=== PATIENT | male | born 1950 ===

== ENCOUNTER → 2024-06-21 12:12 | Outpatient (BNVA) | payer MEDICARE, SELFPAY | PROVIDERS: Visit Provider Physician Assistant | DX: Z76.0 Encounter for issue of repeat prescription (principal); I10 Essential (primary) hypertension | CPT/HCPCS: 99212 ==

== ENCOUNTER 2024-06-21 12:17 | Outpatient (AMB) | payer MEDICARE, SELFPAY ==
--- NOTE | 2024-06-21 12:39 | AM.OFFWIN_ITS ---
Intake Vital Signs 06/21/24 12:45 Height 5 ft 9 in Weight 185 lb BMI 27.3 BP 138/80 Blood Pressure Location Lt brachial Position Sitting Pulse 76 Pulse Source Pulse Oximeter Temp 98.1 F Temp Source Oral Pulse Oximetry (%) 98 Intake Visit Reasons: [employer] BP refill?? was ok'd to come yesterday Patient Tobacco Use Status: Current someday Tobacco user Allergies tetracycline Allergy (Mild, Verified 06/21/24 12:49) Unknown Do you need a note to return to daycare/school/sports/work: No HPI HPI Comments History of Present Illness Details This is a 74-year-old male with a past medical history of hypertension and glaucoma presenting requesting refills of his hypertension medications. Patient states his primary care physician Dr. Shepherd unfortunately closed his practice over 2 years ago and he has been getting his medications through urgent care. Patient is unaware of his last blood work. He does not currently have an appointment for an intake for primary care. Patient's last dose of his medications was yesterday and he has no physical complaints at this time. Patient has been recording his blood pressures and his blood pressure this morning was 142/81 and 136/76. Patient called the clinic yesterday to inquire about refills of his blood pressure medication and this request was approved. [facility] Social History Patient Tobacco Use Status: Current someday Tobacco user Review of Systems Const All systems reviewed & are unremarkable except as noted in HPI and below Eyes Reports no additional complaints ENT Reports no additional complaints Card Reports no additional complaints Resp Reports no additional complaints GI Reports no additional complaints Reports no additional complaints Musc Reports no additional complaints Skin/Breast Reports system reviewed and no additional complaints, except as documented Neuro Reports no additional complaints Psych Reports no additional complaints Endo Reports no additional complaints Mj/Lymph Reports no additional complaints Aller/Immun Reports no additional complaints Physical Exam Vital Signs: Last Vital Signs Temp 98.1 F 06/21/24 12:45 Pulse 76 06/21/24 12:45 BP 138/80 06/21/24 12:45 Pulse Ox 98 06/21/24 12:45 BMI result Body Mass Index 27.3 Const General: cooperative, healthy appearing, comfortable, no acute distress, well developed, alert, awake and Physically active Nutritional Appearance: average body habitus Orientation/consciousness: patient oriented x3 Limitations: no limitations Resp Effort & Inspection: normal respiratory effort and able to speak in complete sentences Auscultation: clear to auscultation bilaterally Cardio Rate: regular rate Rhythm: regular rhythm Skin General skin exam: no rashes or lesions noted Neuro General: patient oriented x3 Psych Appearance: grossly normal Mental Status: mental status grossly normal Insight: Good insight present (Psych) Judgement: Good judgement present (Psych) Assessment & Plan Assessment & Plan (1) Encounter for medication refill: Comment: Medications will be refilled for 30 days. Patient is aware that subsequent refills may not be guaranteed by other providers and he will likely be requested to have laboratory work done prior. Patient was discharged and instructed to stop at the front end engineer to inquire about obtaining an intake for primary care services. Code(s): Z76.0 - Encounter for issue of repeat prescription Plan: Diltiazem 240 mg 1 tab daily and lisinopril 5 mg 1 tab daily quantity 30 each Medications: New lisinopril 5 mg PO DAILY 30 tabs 0RF diltiazem HCl ER 240 mg PO DAILY 30 caps 0RF Coding Level of Care Code Est Pt Level 3 (05009) Diagnoses Encounter for medication refill Z76.0 Time Spent (min) 20
[2024-06-21 12:45] VITALS: BP 138/80; PULSE 76; TEMP 36.7; O2SAT 98; BMI 27.3
== END 2024-06-21 13:07 | disposition home or self-care (01) ==
PROVIDERS: Visit Provider Physician Assistant
DX: Z76.0 Encounter for issue of repeat prescription (principal)